=== PATIENT | male | born 1945 | race Caucasian/White ===

== ENCOUNTER → 2016-10-22 | Outpatient (CLI) | payer MEDICARE, OTHER | LOC: COL.RAD 12:43 | DX: K80.20 Calculus of gallbladder without cholecystitis without obstruction (principal); I10 Essential (primary) hypertension ==

== ENCOUNTER → 2018-06-17 | Outpatient (CLI) | payer MEDICARE, OTHER | LOC: COL.RAD 09:25 | DX: I10 Essential (primary) hypertension (principal); K80.20 Calculus of gallbladder without cholecystitis without obstruction; N50.811 Right testicular pain ==

== ENCOUNTER → 2023-07-28 | Outpatient (CLI) | payer MEDICARE, OTHER | LOC: COL.VAS 09:47 | DX: I35.1 Nonrheumatic aortic (valve) insufficiency (principal); I51.7 Cardiomegaly ==

== ENCOUNTER → 2023-08-13 | Outpatient (CLI) | payer MEDICARE, OTHER | LOC: COL.RAD 14:44 | DX: I31.39 Other pericardial effusion (noninflammatory) (principal); I51.7 Cardiomegaly; J90 Pleural effusion, not elsewhere classified; R18.8 Other ascites | CPT/HCPCS: Q9967 ==

== ENCOUNTER 2023-08-28 12:17 | Inpatient (IN) | payer MEDICARE, OTHER ==
[~2023-08-28] VITALS: Ht 170.2 cm; Wt 108.5 kg
[2023-08-28 14:43] LABS: BASO # 0.2 K/mm3 (0.0-0.2); BASO % 1.6 % (0.0-2.0); EOS # 0.1 K/mm3 (0.0-0.7); EOS % 1.2 % (0.0-4.0); GRAN # 6.9 K/mm3 (1.4-6.5); GRAN % 75.2 % (42.2-75.2); HEMATOCRIT 45.4 % (42.0-52.0); HEMOGLOBIN 14.2 g/dl (13.5-18.0); LYMPH # 1.2 K/mm3 (1.2-3.4); MEAN CELL VOLUME 96 fl (80.0-100.0); MEAN CORPUSCULAR HEMOGLOBIN 30 pg (27-31); MEAN CORPUSCULAR HGB CONC 31 g/dl (33.0-37.0); MEAN PLATELET VOLUME 10.6 fl (7.4-10.4); MONO # 0.8 K/mm3 (0.1-0.6); MONO % 8.7 % (1.7-9.3); PLATELET COUNT 438 K/mm3 (130-400); RED BLOOD COUNT 4.71 M/mm3 (4.20-5.60); REDCELL DISTRIBUTION WIDTH-CV 15.9 % (11.5-14.5)
[2023-08-28 14:57] LABS: ALBUMIN 3.4 gm/dL (3.4-4.8); BILIRUBIN,TOTAL 1.5 mg/dL (0.2-1.2); CALCIUM 9.8 mg/dL (8.4-10.2); CREATININE, serum 2.3 mg/dL (0.72-1.25); POTASSIUM 4.8 mmol/L (3.5-4.5); TOTAL PROTEIN 8.3 gm/dL (6.2-8.1)
[2023-08-28 15:02] LABS: INR 1.5 (0.8-3.0); PROTHROMBIN TIME 16.2 SECONDS (9.7-12.8)
[2023-08-28 15:06] LABS: TROPONIN-I 0.085 ng/mL (0.00-0.033)
[2023-08-28] MEDS ORDERED: LASIX 40MG TABL40 MG PO (15:46)
[2023-08-28] MEDS ORDERED: ZOCOR 40MG40 MG PO (15:47)
[2023-08-28] MEDS ORDERED: PRIL40 PO (15:47)
[2023-08-28] MEDS ORDERED: DIOVAN320 MG PO (15:48)
[2023-08-28] MEDS ORDERED: TRICOR145 MG PO (15:48)
[2023-08-28] MEDS ORDERED: GLUCOPHAGE500 MG/TAB PO (15:49)
[2023-08-28] MEDS ORDERED: FLONASE NASAL S16 GM NS (15:50)
[2023-08-28] MEDS ORDERED: ALTACE 10MG TAB10 MG PO (15:51)
[2023-08-28] MEDS ORDERED: Polyethylene Glycol 3350 17 GM PDS PO PRN (16:15)
[2023-08-28] MEDS ORDERED: Acetaminophen 325 MG TAB PO PRN (16:15)
[2023-08-28] MEDS ORDERED: Ondansetron 4 MG/2 ML VIAL IV PRN (16:15)
[2023-08-28] MEDS ORDERED: Docusate Sodium 100 MG CAP PO PRN (16:15)
[2023-08-28] MEDS ORDERED: Furosemide 40 MG/4 ML VIAL IV SCH (16:16)
[2023-08-28] MEDS ORDERED: TENORMIN100 MG PO (16:21)
[2023-08-28] MEDS ORDERED: EPA FISH OIL1 SGL PO (16:24)
[2023-08-28] MEDS ORDERED: Insulin Aspart (NovoLOG) SQ SCH (17:00)
[2023-08-28 17:55] LABS: CHOLESTEROL RISK RATIO 5.6
[2023-08-28] MEDS ORDERED: Fluticasone Nasal 50 MCG/Spray 16 GM BOTTLE NS SCH (19:30)
[2023-08-28 20:00] VITALS: BP 182/89; PULSE 56; TEMP 97.4
--- NOTE | 2023-08-28 20:00 | NUR ---
PATIENT ADMITTED TO ROOM 351 BROUGHT BY SWIMMING PROFESSOR. ADMITTING VS ARE: 182/89BP, 56 PULSE, 9O% RA TEMP. 97.4 AUXILLARY. PATIENT EXHIBITED CYANOSIS AND RT WAS BEDSIDE. 2L NC WAS PLACED AND PATIENT O2 SAT 94%. CYANOSIS UNRESOLVED. PATIENT DENIES SOA AND CHEST PAIN BUT C/O OQUENDO RELATED BLADER SPASMS. OFFERED MORPHINE AND OXYBUTYL. PATIENT REFUSED MORPHINE AND OQUENDO WAS IRRIGATED AND IS PATENT-URINE PALE AND CLEAR. LUNG SOUNDS ARE CLEAR IN UPPER LOBES AND DIMINSHED IN LOWER. HR SOUNDS ADELINA CARDIC. ORIENTED TO ROOM AND WILL REASSESS BP. CALL LIGHT WITHIN REACH.
[2023-08-28 21:00] VITALS: BP_SYST 182
[2023-08-28] MEDS ORDERED: Atorvastatin 20 MG TAB PO SCH (21:00)
[2023-08-28] MEDS ORDERED: Oxybutynin 5 MG TAB PO SCH (22:14)
--- NOTE | 2023-08-28 22:15 | NUR ---
PHYSCIAN NOTIFIED CRITICAL TROPONIN VALUE 0.084.
[2023-08-29] VITALS (13 sets, daily range): BP systolic 121–161; BP diastolic 43–84; PULSE 47–86; TEMP 96–98.4
[2023-08-29] MEDS ORDERED: Heparin 5,000 UNITS/ML 1 ML VIAL SQ SCH
--- NOTE | 2023-08-29 01:29 | NUR ---
PATIENT REQUESTED OQUENDO BE REMOVED. SYTATED HE CAN NOT TOLERATE THE SPASM ANY MORE. CALL PLACED TO [facility] TO REMOVE OQUENDO GRANTED. OQUENDO REMOVE AND PATIENT USING BEDSIDE URINAL. 200 ML FLOWING IMMEDIATELY AFTER REMOVAL. URINE PALE AND CLEAR.
--- NOTE | 2023-08-29 02:00 | NUR ---
Patient's left arm fistula observed to have scant blood. He stated he removed dressing. New gauze dressing placed. Sacrum noted erythemia-blanchable. Mepiplex placed.
--- NOTE | 2023-08-29 03:15 | NUR ---
PATIENT ONLY URINATED 100 MLS SINCE INITIAL REMOVAL OF OQUENDO. BLADDER SCANNED-544 MLS. ASSISSTED PATIENT WITH ATTEMPTS TO URINATE USING URINAL, WALKED UNIT AND APPLIED WARM BLANKETS. EDUCATED PATIENT ON RISKS OF BLADDER RUPTURE AND THE NEED FOR CATHETER, HE STATED HE WOULD LEAVE AMA IF HE HAS TO BE CATHED AGAIN, "I AM WALKING OUT."
--- NOTE | 2023-08-29 05:49 | NUR ---
PATIENT RESTING IN BED. HAS URINATED 150MLS SINCE CATHETER REMOVAL. DENIES CHEST PAIN AND SOA. VS ARE WNL. TELE IS AFIB RATE CONTROLLED. CALL LIGHT WITHIN REACH.
[2023-08-29 07:02] LABS: BASO # 0.2 K/mm3 (0.0-0.2); BASO % 1.6 % (0.0-2.0); EOS # 0.1 K/mm3 (0.0-0.7); HEMATOCRIT 47.3 % (42.0-52.0); HEMOGLOBIN 14.7 g/dl (13.5-18.0); LYMPH # 1.3 K/mm3 (1.2-3.4); LYMPH % 14.2 % (20.0-51.0); MEAN CELL VOLUME 97 fl (80.0-100.0); MEAN CORPUSCULAR HEMOGLOBIN 30 pg (27-31); MEAN CORPUSCULAR HGB CONC 31 g/dl (33.0-37.0); MEAN PLATELET VOLUME 10.5 fl (7.4-10.4); MONO # 0.8 K/mm3 (0.1-0.6); MONO % 8.7 % (1.7-9.3); PLATELET COUNT 455 K/mm3 (130-400); RED BLOOD COUNT 4.88 M/mm3 (4.20-5.60); REDCELL DISTRIBUTION WIDTH-CV 15.8 % (11.5-14.5)
[2023-08-29 07:12] LABS: CALCIUM 9.8 mg/dL (8.4-10.2); CREATININE, serum 2.39 mg/dL (0.72-1.25); POTASSIUM 4.6 mmol/L (3.5-4.5)
--- NOTE | 2023-08-29 09:45 | NUR ---
Patient is resting in bed, alert and oriented x 4, states SOB when ambulating. BLE brown skin, purple feet, extremities cold. Abdomen firm. Assessment completed, no further needs at this time. Call light within reach.
[2023-08-29] MEDS ORDERED: hydrALAZINE 10 MG TAB PO SCH (14:00)
--- NOTE | 2023-08-29 14:12 | NUR ---
Pt was taken for ultrasound thora and para.
--- NOTE | 2023-08-29 16:17 | NUR ---
Patient is back from interventions, alert and oriented x 4, VSS. amazed about procedures and talkative.
--- NOTE | 2023-08-29 16:19 | NUR ---
RL QUADRANT abdomen, bandaid, CDI. Right lower back, bandaid, CDI.
--- NOTE | 2023-08-29 16:20 | NUR ---
2 sites covered with bandaids, RLBACK and LLABDOMEN, clean, dry, intact.
[2023-08-29 16:32] LABS: PLEURAL FLUID RBC 0 /mm3 (0-0); PLEURAL FLUID WBC 453 /mm3
--- NOTE | 2023-08-29 16:36 | NUR ---
SW student, Alayna, attempted to meet with patient but he was not in his room at that time. VALORIE attempted to meet with patient later in the day and he was not in his room at that time. VALORIE will follow up to complete assessment.
[2023-08-29 16:42] LABS: PERITONEAL -POLYMORPHONUCLEAR 21.3 % (0-25)
[2023-08-29 16:45] LABS: PLEURAL FLUID APPEARANCE CLEAR; PLEURAL FLUID COLOR YELLOW
--- NOTE | 2023-08-29 20:00 | NUR ---
upon shift assessment, patient was sleeping soundly in bed. vs are wnl and tele is ns. Syed denies chest pain and RT has removed him from o2. His troponin level has remained 0.085. HE C/O NO PAIN OR STATES NEEDS AT THIS TIME. CALL LIGHT WITHIN REACH.
[2023-08-30] VITALS (7 sets, daily range): BP systolic 111–167; BP diastolic 50–73; PULSE 47–71; TEMP 97.6–98.1
--- NOTE | 2023-08-30 04:00 | NUR ---
ALERTED BY TELE THAT ART (NILS) WAS BRADYCARDIC IN LOW 40s. ASSESSED PATIENT AND HE WAS EASY TO AROUSE AND WAS ASYMPTOMATIC. AXO X4, SKIN GOOD, BP-WNL, O2 SAT 95%. TELE CURRENTLY READS NS 46BPM.
[2023-08-30 09:31] LABS: BASO # 0.1 K/mm3 (0.0-0.2); BASO % 1.4 % (0.0-2.0); EOS # 0.1 K/mm3 (0.0-0.7); GRAN # 5.7 K/mm3 (1.4-6.5); GRAN % 73.4 % (42.2-75.2); HEMATOCRIT 39.9 % (42.0-52.0); LYMPH # 1.1 K/mm3 (1.2-3.4); LYMPH % 13.9 % (20.0-51.0); MEAN CELL VOLUME 95 fl (80.0-100.0); MEAN CORPUSCULAR HEMOGLOBIN 30 pg (27-31); MEAN CORPUSCULAR HGB CONC 32 g/dl (33.0-37.0); MEAN PLATELET VOLUME 10.6 fl (7.4-10.4); MONO # 0.8 K/mm3 (0.1-0.6); MONO % 9.8 % (1.7-9.3); PLATELET COUNT 388 K/mm3 (130-400); RED BLOOD COUNT 4.19 M/mm3 (4.20-5.60); REDCELL DISTRIBUTION WIDTH-CV 15.6 % (11.5-14.5)
[2023-08-30 09:46] LABS: CREATININE, serum 2.33 mg/dL (0.72-1.25); POTASSIUM 4.1 mmol/L (3.5-4.5)
--- NOTE | 2023-08-30 09:50 | NUR ---
PT LAYING IN BED UPON ENTERING. ASSESSMENT DONE, MEDS GIVEN PER ORDER. PT ON 2L NASAL CANNULA AND DENIES PAIN OR SHORTNESS OF BREATH AT THIS TIME. IV TO RIGHT HAND FLUSHED WELL WITHOUT COMPLICATIONS. DURING ASSESSMENT UPPER LOBES CLEAR AND BASES BILATERALLY DIMINISHED. BANDAID TO LEFT LOWER ABDOMEN FROM PREVIOUS PARACENTESIS AND BANDAID TO RIGHT UPPER BACK FROM PREVIOUS THORACENTESIS. PT DENIES NEEDS AT THIS TIME. BED IN LOWEST POSITION, CALL LIGHT IN REACH.
[2023-08-30 10:14] LABS: HEMOGLOBIN 12.6 g/dl (13.5-18.0)
--- NOTE | 2023-08-30 11:50 | NUR ---
DR JOHNSON NOTIFIED THIS NURSE THAT AFTER EXERCISE OX IS COMPLETE PT WILL BE DISCHARGE. NO DISCHARGE ORDERS AT THIS TIME AND PT UPDATED
[2023-08-30] MEDS ORDERED: APRESOLINE 10MG10 MG PO (12:22)
[2023-08-30] MEDS ORDERED: NORVASC 10MG10 MG PO (12:28)
--- NOTE | 2023-08-30 13:24 | NUR ---
PT SPO2 94% ON 2 LPM NC. O2 TURNED OFF WHILE PT FINISHED LUNCH. SPO2 92% RT WALKED WITH PT AROUND SURGICAL LOOP AND BACK TO ROOM SPO2 91%
--- NOTE | 2023-08-30 13:33 | NUR ---
IV AND TELE REMOVED. PT GETTING DRESSED
--- NOTE | 2023-08-30 13:56 | NUR ---
Data: Patient sitting on side of bed; declined Correction Worker visit when offered because he is going to "have a few tests and then go home today." He was waiting for his to arrive. Assessment: Patient hopeful for discharge. Plan of Care: Chaplains will remain available upon request while Patient is still admitted to this hospital.
--- NOTE | 2023-08-30 14:00 | NUR ---
PT DRESSED IN PERSONAL CLOTHES AND GIVEN DISCHARGE INFORMATION ON MEDS AND APPTS. PT ASKING FOR SOCIAL WORKS NUMBER REGARDING INSURANCE AND DR CEDEÑO NUMBER, BOTH GIVEN TO PT. PT DENIES NEEDS AT THIS TIME AND ESCORTED TO PERSONAL VEHICLE BY [facility] VIA WHEELCHAIR.
--- NOTE | 2023-08-30 16:26 | NUR ---
Zoology Teacher met with patient to discuss discharge planning. Patient lives in [place] with his , Radhames (ph#[phone]) and sees Dr. Ferreira for primary care. Patient obtains medications from [facility] and reported use of a cane for ambulation. Patient is independent with ADLS and plans to return home today. Patient advised he does not have DPOA-HC and was not interested in completing one at this time. Patient had Exercise Oximetry done by RT and did not qualify for home oxygen. Discharge Plan: Home
== END 2023-08-30 14:00 | disposition home or self-care (01) | DRG 280 ==
LOC: COL.ER 12:17 → MEDICAL 16:03
PROVIDERS: Emergency Medicine; Internal Medicine; ADMIT Internal Medicine
DX: I11.0 Hypertensive heart disease with heart failure (principal); I50.33 Acute on chronic diastolic (congestive) heart failure; I21.4 Non-ST elevation (NSTEMI) myocardial infarction; R18.8 Other ascites; I48.91 Unspecified atrial fibrillation; E78.5 Hyperlipidemia, unspecified; E11.9 Type 2 diabetes mellitus without complications; Z79.84 Long term (current) use of oral hypoglycemic drugs; J30.2 Other seasonal allergic rhinitis
CPT/HCPCS: J1644; J1940